=== PATIENT | female | born 1950 | race Caucasian/White ===

== ENCOUNTER → 2018-06-12 | Outpatient (CLI) | payer MEDICARE, BC ==
[2018-06-12 13:47] LABS: ABSOLUTE EOSINOPHILS # (AUTO) 0.2 10^3/uL (0.0-0.6); ABSOLUTE LYMPHOCYTES (AUTO) 1.6 10^3/uL (0.5-4.7); ABSOLUTE MONOCYTES (AUTO) 0.4 10^3/uL (0.1-1.4); ABSOLUTE NEUT (AUTO) 3.6 10^3/uL (1.7-8.2); BASOPHILS % (AUTO) 0.6 % (0-2); EOSINOPHILS % (AUTO) 3.2 % (0-6); HEMATOCRIT 31.2 % (36.0-47.0); HEMOGLOBIN 10.7 g/dL (12.0-15.5); LYMPHOCYTES % (AUTO) 27.5 % (13-45); MEAN CORPUSCULAR HGB CONC 34.3 g/dL (32.0-36.0); MEAN CORPUSCULAR VOLUME 93 fl (80-97); MONOCYTES % (AUTO) 7.5 % (3-13); PLATELET COUNT 387 10^3/uL (150-450); RED BLOOD COUNT 3.34 10^6/uL (3.72-5.28); RED CELL DISTRIBUTION WIDTH 12.6 % (11.5-14.0); SEGMENTED NEUTROPHILS % (AUTO) 61.2 % (42-78); TOTAL CELLS COUNTED % (AUTO) 100 %; WHITE BLOOD COUNT 5.8 10^3/uL (4.0-10.5)
--- NOTE | 2018-06-12 14:05 | RADIOLOGY REPORT (SQ) ---
EXAM DESCRIPTION: CHEST PA/LATERAL COMPLETED DATE/TIME: 06/12/2018 1:39 pm REASON FOR STUDY: COUGH COMPARISON: 02/05/2013 EXAM PARAMETERS: NUMBER OF VIEWS: two views TECHNIQUE: Digital Frontal and Lateral radiographic views of the chest acquired. RADIATION DOSE: NA LIMITATIONS: none FINDINGS: LUNGS AND PLEURA: Patchy consolidation is present in the medial aspect of the right upper lobe and right middle lobe, worrisome for pneumonia. There is patchy airspace disease just above the left hemidiaphragm, atelectasis versus pneumonia. Remainder of the lungs are hyperinflated and hyperlucent from obstructive disease. No pleural effusi on. No pneumothorax. MEDIASTINUM AND HILAR STRUCTURES: No masses or contour abnormalities. HEART AND VASCULAR STRUCTURES: Heart normal size. No evidence for failure. BONES: No acute findings. HARDWARE: Clips left axilla and chest wall post mastectomy OTHER: No other significant finding. IMPRESSION: Multifocal airspace disease worrisome for pneumonia TECHNICAL DOCUMENTATION: JOB ID: [id number] [employer]- All Rights Reserved Reading location - IP/workstation name: [facility]
[2018-06-12 14:14] LABS: ALANINE AMINOTRANSFERASE 40 U/L (9-52); ALBUMIN 3.7 g/dL (3.5-5.0); ALKALINE PHOSPHATASE 80 U/L (38-126); ANION GAP 11 (5-19); ASPARTATE AMINO TRANSFERASE 40 U/L (14-36); BILIRUBIN,DIRECT 0.1 mg/dL (0.0-0.4); BILIRUBIN,TOTAL 0.2 mg/dL (0.2-1.3); BLOOD UREA NITROGEN 9 mg/dL (7-20); C-REACTIVE PROTEIN 15.9 mg/L (<10.0); CALCIUM 9.6 mg/dL (8.4-10.2); CARBON DIOXIDE 31 mmol/L (22-30); CHLORIDE 100 mmol/L (98-107); GLUCOSE 94 mg/dL (75-110); POTASSIUM 4.4 mmol/L (3.6-5.0); TOTAL PROTEIN 7.1 g/dL (6.3-8.2)
[2018-06-12 14:27] LABS: ERYTHROCYTE SEDIMENTATION RATE 110 mm/hr (0-30)
== END ==
LOC: OD 13:07
PROVIDERS: ATTEND Physician Assistant Medical
DX: R05 Cough (principal); R60.9 Edema, unspecified
CPT/HCPCS: 36415; 71046; 80053; 83880; 85025; 85652; 86140

== ENCOUNTER → 2018-06-15 | Outpatient (CLI) | payer MEDICARE, BC ==
--- NOTE | 2018-06-15 13:41 | XCELERA REPORT ---
[address] [address] Transthoracic Echocardiogram Report Name: JUSTINA CASTELLANO Age: 67 yrs Gender: Female : 1950 Patient Status: Outpatient Patient Location: [facility] Study Date: 06/15/2018 01:09 PM Procedure: A two-dimensional transthoracic echocardiogram with color flow and Doppler was performed. The study was technically difficult with many images being suboptimal in quality. Reason For Study: CHF History: CHF. Ordering Physician: DANIEL PANDA PA-C Performed By: Michelle Minor Interpretation Summary The left ventricle is normal in size. There is normal left ventricular wall thickness. LV EF is Greater than 65% Left ventricular systolic function is normal. Doppler measurements suggest impaired left ventricular relaxation, which is associated with grade I/IV or mild diastolic dysfunction The left ventricular wall motion is normal. There is no thrombus. The right ventricle is grossly normal size. The right atrium is normal. The left atrial size is normal. There is no evidence of mitral valve prolapse. There is no vegetation seen on the mitral valve. There is no mitral valve stenosis. There is a trace amount of mitral regurgitation There is no aortic valvular vegetation. There is no aortic valve stenosis There is no LVOT obstruction. No aortic regurgitation is present. There is no tricuspid stenosis. There is a trace to mild amount of tricuspid regurgitation There is mild pulmonary hypertension by echo RVSP is 36 to 41 mm of Hg ,with RA mean of 5 to 10. There is no pulmonic valvular stenosis. There is no pulmonic valvular regurgitation. The aortic root is normal size. The inferior vena cava appeared normal and decreased > 50% with respiration (RAP 5-10 mmHg) There is no pericardial effusion. MMode/2D Measurements & Calculations IVSd: 0.86 cm LVIDd: 3.4 cm FS: 32.5 % Ao root diam: 2.5 cm LVIDs: 2.3 cm EDV(Teich): 47.1 ml Ao root area: 4.9 cm2 LVPWd: 0.81 cm ESV(Teich): 17.9 ml EF(Teich): 62.0 % Doppler Measurements & Calculations MV E max adan: MV dec slope: Ao V2 max: LV V1 max P.9 cm/sec 128.2 cm/sec 3.7 mmHg MV A max adan: 344.0 cm/sec2 Ao max PG: LV V1 max: 106.2 cm/sec MV dec time: 0.18 sec 6.6 mmHg 96.5 cm/sec MV E/A: 0.58 PA V2 max: TR max adan: 100.0 cm/sec 274.4 cm/sec PA max P.0 mmHg TR max P.1 mmHg Left Ventricle The left ventricle is normal in size. There is normal left ventricular wall thickness. LV EF is Greater than 65%. Left ventricular systolic function is normal. Doppler measurements suggest impaired left ventricular relaxation, which is associated with grade I/IV or mild diastolic dysfunction. The left ventricular wall motion is normal. There is no thrombus. Right Ventricle The right ventricle is grossly normal size. The right ventricle is not well visualized secondary to technical limitations. Atria The right atrium is normal. The left atrial size is normal. Mitral Valve There is no evidence of mitral valve prolapse. There is no vegetation seen on the mitral valve. There is no mitral valve stenosis. There is a trace amount of mitral regurgitation. Aortic Valve There is no aortic valvular vegetation. There is no aortic valve stenosis. There is no LVOT obstruction. No aortic regurgitation is present. Tricuspid Valve There is no tricuspid stenosis. There is a trace to mild amount of tricuspid regurgitation. There is mild pulmonary hypertension by echo. RVSP is 36 to 41 mm of Hg ,with RA mean of 5 to 10. Pulmonic Valve There is no pulmonic valvular stenosis. There is no pulmonic valvular regurgitation. Great Vessels The aortic root is normal size. The inferior vena cava appeared normal and decreased > 50% with respiration (RAP 5-10 mmHg). Effusions There is no pericardial effusion. : DANIEL PANDA PA-C > Rhea Jackson
== END ==
LOC: SP 11:51
PROVIDERS: ATTEND Physician Assistant Medical
DX: I50.9 Heart failure, unspecified (principal)
CPT/HCPCS: 93306

== ENCOUNTER 2019-12-10 15:09 | Observation (INO) | payer MEDICARE, BC ==
[~2019-12-10 15:09] MED LIST: GLYCOPYRROLATE 1 MG/5 ML VIAL ONE; NEOSTIGMINE METHYLSULFATE 10 MG/10 ML VIAL ONE; PHENYLEPHRINE HCL INJ/PF 10 MG/1 ML SDV ONE; ROCURONIUM BROMIDE INJ 50 MG/5 ML VIAL IV ONE; SUCCINYLCHOLINE CHLORIDE INJ 200 MG/10 ML VIAL ONE
--- NOTE | 2019-12-10 16:46 | ER Document Report ---
ED Medical Screen (RME) - General Chief Complaint: Abdominal Pain Stated Complaint: ABDOMINAL PAIN Time Seen by Provider: 12/10/19 16:45 Primary Care Provider: DANIEL PANDA PA-C [Primary Care Provider] - Follow up as needed Mode of Arrival: Ambulatory Information source: Patient Notes: Ms. Byrd is a 69-year-old female presents to the emergency room with interm ittent right upper abdominal discomfort which is been ongoing for a little over a month. Seems to be related to food she states that she has the same symptoms her daughter had when her gallbladder needed to come out. I greeted and performed a rapid initial assessment of this patient. Comprehensive ED assessment and evaluation of the patient, analysis of test results and completion of the medical decision making process will be conducted by additional ED providers. TRAVEL OUTSIDE OF THE [place] IN LAST 30 DAYS: No - Related Data Allergies/Adverse Reactions: No Known Drug Allergies Allergy (Severe, Verified 08/29/11 12:22) BANDAIDS Adverse Reaction (Uncoded 08/23/11 10:38) RASH Past Medical History - Past Medical History Cardiac Medical History: Denies: Hx Heart Attack, Hx Hypertension - BORDERLINE Pulmonary Medical History: Denies: Hx Asthma Neurological Medical History: Denies: Hx Cerebrovascular Accident, Hx Seizures GI Medical History: Denies: Hx Hepatitis, Hx Hiatal Hernia, Hx Ulcer Infectious Medical History: Denies: Hx Hepatitis Past Surgical History: Reports: Hx Mastectomy - LEFT ARM RESTRICTIONS. Denies: Hx Hysterectomy, Hx Open Heart Surgery, Hx Pacemaker Physical Exam - Vital signs Vitals: Temp Pulse Resp BP Pulse Ox 98.1 F 79 16 156/58 H 97 12/10/19 15:15 12/10/19 15:15 12/10/19 15:15 12/10/19 15:15 12/10/19 15:15 Course - Vital Signs Vital signs: Temp Pulse Resp BP Pulse Ox 98.1 F 79 16 156/58 H 97 12/10/19 15:15 12/10/19 15:15 12/10/19 15:15 12/10/19 15:15 12/10/19 15:15 Doctor's Discharge - Discharge Referrals: DANIEL PANDA PA-C [Primary Care Provider] - Follow up as needed
[2019-12-10 17:13] LABS: APPEARANCE,URINE CLEAR; BILIRUBIN,URINE NEGATIVE (NEGATIVE); COLOR,URINE YELLOW; GLUCOSE, URINE NEGATIVE (NEGATIVE); KETONES,URINE NEGATIVE (NEGATIVE); LEUKOCYTE ESTERASE,URINE NEGATIVE (NEGATIVE); NITRITE,URINE NEGATIVE (NEGATIVE); PROTEIN,URINE NEGATIVE (NEGATIVE); URINE SPECIFIC GRAVITY 1.005; UROBILINOGEN,URINE NEGATIVE mg/dL (<2.0)
--- NOTE | 2019-12-10 17:32 | ER Document Report ---
ED General - General Chief Complaint: Abdominal Pain Stated Complaint: ABDOMINAL PAIN Time Seen by Provider: 12/10/19 16:45 Primary Care Provider: DANIEL PANDA PA-C [PHYSICIAN TUMBLERS SUPERVISOR] - Follow up as needed Mode of Arrival: Ambulatory TRAVEL OUTSIDE OF THE [place] IN LAST 30 DAYS: No - HPI Notes: Chief complaint: Right upper quadrant pain HPI: 69-year-old female presenting with 1 month history intermittent right upper quadrant abdominal pain. Episodes are gradually getting worse and coming a little more frequently. Occasionally more of a problem after eating although this is not been a consistent pattern. Mild associated nausea without vomiting. Mild anorexia. No weight loss. No fever, chills, or dysuria. Patient reports past history of GERD. She denies any known history of gallbladder or biliary tract disease, liver disease or peptic ulcer disease. Bowel movements are normal. No melena or hematochezia. No hematemesis. She has never had any tiffanie luation of her gallbladder and has not talked with her primary care physician about the symptoms. Patient has had a past history of breast CA. She is on tamoxifen for this. She has been disease-free for 10 years. Previous left mastectomy. Patient has had a in the past. No other abdominal surgery. Patient has a history of hypertension. Former cigarette smoker. She quit approximately 2 years ago. Consumes about 2 cans of beer per day. Denies any drug use. 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 Patient has recently been seeing her senior maintenance machinist because of "some kind of a problem with the uterus" and has been told that she needs an endometrial biopsy because of postmenopausal spotting. - Related Data Allergies/Adverse Reactions: No Known Drug Allergies Allergy (Severe, Verified 08/29/11 12:22) BANDAIDS Adverse Reaction (Uncoded 08/23/11 10:38) RASH Past Medical History - General Information source: Patient, [facility] Records - Social History Smoking Status: Former Smoker Frequency of alcohol use: 2 beers daily. Drug Abuse: None Family History: Hypertension, Malignancy Patient has homicidal ideation: No - Past Medical History Cardiac Medical History: Reports: Hx Hypertension - BORDERLINE Denies: Hx Heart Attack Pulmonary Medical History: Reports: None Denies: Hx Asthma EENT Medical History: Reports: None Neurological Medical History: Reports: Other - Peripheral neuropathy. Denies: Hx Cerebrovascular Accident, Hx Seizures Endocrine Medical History: Reports: None Renal/ Medical History: Reports: None Malignancy Medical History: Reports: Hx Breast Cancer GI Medical History: Reports: Hx Gastroesophageal Reflux Disease. Denies: Hx Hepatitis, Hx Hiatal Hernia, Hx Ulcer Musculoskeletal Medical History: Reports None Skin Medical History: Reports None Psychiatric Medical History: Reports: None Infectious Medical History: Denies: Hx Hepatitis Past Surgical History: Reports: Hx Section, Hx Mastectomy - LEFT ARM RESTRICTIONS. Denies: Hx Appendectomy, Hx Cholecystectomy, Hx Hysterectomy, Hx Open Heart Surgery, Hx Pacemaker Review of Systems - Review of Systems Notes: Constitutional: Negative for fever. HENT: Negative for sore throat. Eyes: Negative for visual changes. Cardiovascular: Negative for chest pain. Respiratory: Negative for shortness of breath. Gastrointestinal: As per HPI. Genitourinary: Negative for dysuria. Musculoskeletal: Negative for back pain. Skin: Negative for rash. Neurological: Negative for headaches, weakness or numbness. 10 point ROS negative except as marked above and in HPI. Physical Exam - Vital signs Vitals: Temp Pulse Resp BP Pulse Ox 98.1 F 79 16 156/58 H 97 12/10/19 15:15 12/10/19 15:15 12/10/19 15:15 12/10/19 15:15 12/10/19 15:15 - Notes Notes: GENERAL: Well-developed well-nourished female approximately stated age appearing in no acute distress. SKIN: Good turgor no rashes. HEAD: Normocephalic atraumatic. EYES: PERRLA. EOMI. Conjunctivae and sclerae clear. EARS: CANALS AND TMS CLEAR. NOSE: CLEAR. MOUTH: Moist mucosa. Edentulous. No stridor or edema. No drooling. NECK: Supple. No masses or thyromegaly. No adenopathy. Carotids 2+ without bruits. No JVD. BACK: Symmetrical without tenderness. CHEST: Respirations unlabored. Breath sounds clear and symmetrical. Breasts: Status post left mastectomy. HEART: Regular rhythm. No murmur gallop or rub. ABDOMEN: Minimal tenderness on deep palpation right upper quadrant. Soft withou t masses, organomegaly or rebound. Bowel sounds normally active. No bruits. GENITALIA: Deferred. EXTREMITIES: Mild degenerative changes in the phalangeal joints both hands. No edema. No calf tenderness. Cap refill less than 1.5 seconds. Dorsalis pedis and posterior tibial pulses 3+ and symmetrical. NEUROLOGICAL: GCS 15. Alert and oriented x3. Normal gait. Fluent speech. Cranial nerves II through XII intact. Sensorimotor and cerebellar normal. Normal tone. PSYCHIATRIC: Appropriate affect. Course - Re-evaluation Re-evalutation: 12/10/19 17:34 Differential diagnosis includes cholelithiasis, chronic cholecystitis, diverticulitis, hepatitis, gastritis, peptic ulcer disease and nephrolithiasis. Lab studies requested include CBC, comprehensive metabolic profile, serum lipase, urinalysis. Pending imaging: CT abdomen/pelvis with contrast. 12/10/19 20:53 White count and bilirubin normal lipase and alkaline phosphatase are normal. Transaminases are about twice normal. Imaging consistent with chronic cholecys titis with sludge present. Dr. Adams from general surgery has been consulted and will see the patient in ER at this time. Findings are discussed with the patient. 12/10/19 21:36 Dr. Adams will admit the patient to his service. - Vital Signs Vital signs: Temp Pulse Resp BP Pulse Ox 98.1 F 79 16 156/58 H 97 12/10/19 16:41 12/10/19 15:15 12/10/19 15:15 12/10/19 15:15 12/10/19 15:15 - Laboratory Result Diagrams: 12/10/19 17:26 12/10/19 17:26 Laboratory results interpreted by me: 12/10/19 12/10/19 12/10/19 17:00 17:26 17:26 Hgb 11.7 L Hct 34.0 L Sodium 135.6 L Potassium 3.4 L Creatinine 0.43 L Direct Bilirubin 0.5 H AST 76 H ALT 57 H Urine Ascorbic Acid 40 H - Diagnostic Test Radiology reviewed: Reports reviewed - CT showed gallbladder wall thickening. Subsequent ultrasound showed wall thickening and presence of sludge. No ductal dilatation or pericholecystic fluid present. Discharge - Discharge Clinical Impression: Chronic cholecystitis Condition: Stable Disposition: ADMITTED INPATIENT Admitting Provider: Surgicalist Unit Admitted: Surgical Floor Referrals: DANIEL PANDA PA-C [PHYSICIAN TUMBLERS SUPERVISOR] - Follow up as needed
[2019-12-10 17:42] LABS: ABSOLUTE LYMPHOCYTES (AUTO) 1.2 10^3/uL (0.5-4.7); ABSOLUTE MONOCYTES (AUTO) 0.4 10^3/uL (0.1-1.4); ABSOLUTE NEUT (AUTO) 5.1 10^3/uL (1.7-8.2); BASOPHILS % (AUTO) 0.3 % (0-2); EOSINOPHILS % (AUTO) 0.4 % (0-6); HEMOGLOBIN 11.7 g/dL (12.0-15.5); LYMPHOCYTES % (AUTO) 17.3 % (13-45); MEAN CORPUSCULAR HEMOGLOBIN 31.4 pg (27.0-33.4); MEAN CORPUSCULAR HGB CONC 34.6 g/dL (32.0-36.0); MEAN CORPUSCULAR VOLUME 91 fl (80-97); MONOCYTES % (AUTO) 5.8 % (3-13); PLATELET COUNT 162 10^3/uL (150-450); RED BLOOD COUNT 3.74 10^6/uL (3.72-5.28); RED CELL DISTRIBUTION WIDTH 12.8 % (11.5-14.0); SEGMENTED NEUTROPHILS % (AUTO) 76.2 % (42-78); TOTAL CELLS COUNTED % (AUTO) 100 %; WHITE BLOOD COUNT 6.8 10^3/uL (4.0-10.5)
[2019-12-10 18:02] LABS: ALBUMIN 4.3 g/dL (3.5-5.0); ALKALINE PHOSPHATASE 68 U/L (38-126); ANION GAP 7 (5-19); ASPARTATE AMINO TRANSFERASE 76 U/L (14-36); BILIRUBIN,DIRECT 0.5 mg/dL (0.0-0.4); BILIRUBIN,TOTAL 1.2 mg/dL (0.2-1.3); BLOOD UREA NITROGEN 10 mg/dL (7-20); CALCIUM 9.8 mg/dL (8.4-10.2); CARBON DIOXIDE 29 mmol/L (22-30); CHLORIDE 100 mmol/L (98-107); GLUCOSE 104 mg/dL (75-110); POTASSIUM 3.4 mmol/L (3.6-5.0); TOTAL PROTEIN 7.6 g/dL (6.3-8.2)
--- NOTE | 2019-12-10 18:36 | RADIOLOGY REPORT (SQ) ---
EXAM DESCRIPTION: CT ABD/PELVIS WITH IV ONLY IMAGES COMPLETED DATE/TIME: 12/10/2019 6:23 pm REASON FOR STUDY: pain COMPARISON: None. TECHNIQUE: CT scan of the abdomen and pelvis performed using helical scanning technique with dynamic intravenous contrast injection. No oral contrast. Images reviewed with lung, soft tissue, and bone windows. Reconstructed coronal and sagittal MPR images reviewed. Delayed images for evaluation of the urinary system also acquired. All images stored on PACS. All CT scanners at this facility use dose modulation, iterative reconstruction, and/or weight based d osing when appropriate to reduce radiation dose to as low as reasonably achievable (ALARA). [facility]: Dose Right [facility]: CareDose [facility]: Dose Right [facility]: Teradose 4D [facility]: Amanda Huff DBA SecuRecovery CONTRAST TYPE AND DOSE: 77 cc Omnipaque 350- low osmolar. RENAL FUNCTION: BUN 10 creatinine 0.43 RADIATION DOSE: CT Rad equipment meets quality standard of care and radiation dose reduction techniq ues were employed. CTDIvol: 7.8 - 10.8 mGy. DLP: 890 mGy-cm.. LIMITATIONS: None. FINDINGS: LOWER CHEST: No significant findings. No nodules or infiltrates. LIVER: Normal size. No masses. No dilated ducts. SPLEEN: Normal size. No focal lesions. PANCREAS: No masses. No significant calcifications. No adjacent inflammation or peripancreatic fluid collections. Pancreatic duct not dilated. GALLBLADDER: The gallbladder is mildly distended and there mild thickening of the gallbladder wall. No gallstones are appreciated. ADRENAL GLANDS: No significant masses or asymmetry. RIGHT KIDNEY AND URETER: No solid masses. No significant calcifications. No hydronephrosis or hyd roureter. LEFT KIDNEY AND URETER: No solid masses. No significant calcifications. No hydronephrosis or hydr oureter. AORTA AND VESSELS: No aneurysm. No dissection. Renal arteries, SMA, celiac without stenosis. RETROPERITONEUM: No retroperitoneal adenopathy, hemorrhage or masses. BOWEL AND PERITONEAL CAVITY: No masses or inflammation. There are sigmoid diverticula. APPENDIX: Normal. PELVIS: No mass. No free fluid. Normal bladder. ABDOMINAL WALL: There is a very small ventral hernia just anterior to the bladder ends fat. BONES: No significant or acute findings. OTHER: No other significant finding. IMPRESSION: 1. Mildly distended gallbladder with thickening of the gallbladder wall. Correlate for acalculous cholecystitis. 2. Diverticulosis coli. 3. Very small ventral hernia in the pelvis. Contains fat. TECHNICAL DOCUMENTATION: JOB ID: [id number] Quality ID # [id number]: Final reports with documentation of one or more dose reduction techniques (e.g., Au tomated exposure control, adjustment of the mA and/or kV according to patient size, use of iterative reconstruction technique) 2010 [employer]- All Rights Reserved Reading location - IP/workstation name: [email or web address]
--- NOTE | 2019-12-10 20:32 | RADIOLOGY REPORT (SQ) ---
EXAM DESCRIPTION: Right upper quadrant abdominal ultrasound CLINICAL HISTORY: 69 years Female; ruq pain TECHNIQUE: Abdominal ultrasound was performed. COMPARISON: CT scan of the abdomen and pelvis obtained earlier in the evening FINDINGS: Pancreas: The head and body the pancreas are unremarkable. The tail was not well seen. Liver: The liver measures 14.2 cm in length. Echogenicity is within normal limits. Portal vein is patent with hepatopedal flow.. Gallbladder: The wall measures 4.6 mm. Sonographic Hughes's is negative. There is hyperdense material layering in the gallbladder posteriorly which may represent sludge. No para cholecystic fluid. Common bile duct: 2.0 mm. Right kidney: The kidney measures 10.5 x 4.3 x 5.4 cm. Echogenicity and blood flow are normal.. No hydronephrosis. Aorta:Visualized portions are within normal limits. IVC: Visualized portions are within normal limits. Ascites: No free fluid. IMPRESSION: Possible sludge in the gallbladder with thickened gallbladder wall. No sonographic Hughes's. No biliary dilatation.
--- NOTE | 2019-12-10 22:10 | PDOC H&P ---
History of Present Illness Admission Date/PCP: 12/10/19 21:42 Patient complains of: Abdominal pains History of Present Illness: JUSTINA CASTELLANO is a 69 year old female with history of hypertension and breast cancer postmastectomy, has been complaining of off and on epigastric pains for the past month. Last night she ate cake with icing and noted epigastric pains in the morning with nausea. In the ED she is noted to have thickened gallbladder wall on CT scan and ultrasound also showed about 4.6 cm thickening of the gallbladder wall with sludge formation. She denies any fever no chills. Past Medical History Cardiac Medical History: Reports: Hypertension - BORDERLINE Denies: Myocardial Infarction Pulmonary Medical History: Reports: None Denies: Asthma EENT Medical History: Reports: None Neurological Medical History: Reports: Other - Peripheral neuropathy Denies: Seizures Endocrine Medical History: Reports: None Renal/ Medical History: Reports: None Malignancy Medical History: Reports: Breast Cancer GI Medical History: Reports: Gastroesophageal Reflux Disease Denies: Hepatitis, Hiatal Hernia Musculoskeltal Medical History: Reports: None Skin Medical History: Reports: None Psychiatric Medical History: Reports: None Hematology: Denies: Anemia, Sickle Cell Disease Past Surgical History Past Surgical History: Reports: Section, Mastectomy - LEFT ARM RESTRICTIONS Denies: Amputation, Appendectomy, Cholecystectomy, Hysterectomy, Pacemaker Social History Smoking Status: Former Smoker Frequency of Alcohol Use: Social Family History Family History: Hypertension, Malignancy Parental Family History Reviewed: Yes - Daughter had cholecystectomy for g allstones Children Family History Reviewed: No Sibling(s) Family History Reviewed.: No Medication/Allergy Home Medications: Alendronate Sodium [Fosamax] 70 mg PO TID 08/23/11 Anastrozole [Arimidex 1 Mg Tablet] 1 mg PO DAILY 08/23/11 Ascorbic Acid [Vitamin C 500 Mg Tablet] 1,000 mg PO DAILY 08/23/11 Aspirin [Ecotrin 81 mg EC Tablet] 81 mg PO DAILY 08/23/11 Calcium Plus D 1,200 mg DAILY 08/23/11 Gelatin 650 mg PO DAILY 08/23/11 Woman's Daily Multi Vit DAILY 08/23/11 Allergies/Adverse Reactions: No Known Drug Allergies Allergy (Severe, Verified 08/29/11 12:22) BANDAIDS Adverse Reaction (Uncoded 08/23/11 10:38) RASH Review of Systems Constitutional: PRESENT: other - Denies fever no chills Cardiovascular: PRESENT: other - No chest pains or cough Gastrointestinal: PRESENT: abdominal pain, nausea Physical Exam Vital Signs: Temp Pulse Resp BP Pulse Ox 98.1 F 79 16 156/58 H 97 12/10/19 16:41 12/10/19 15:15 12/10/19 15:15 12/10/19 15:15 12/10/19 15:15 Intake & Output 12/09/19 12/10/19 12/11/19 06:59 06:59 06:59 Weight 66.8 kg General appearance: PRESENT: mild distress Head exam: PRESENT: atraumatic Eye exam: PRESENT: conjunctiva pink Mouth exam: PRESENT: moist Neck exam: PRESENT: full ROM Respiratory exam: PRESENT: clear to auscultation ivan Cardiovascular exam: PRESENT: RRR Pulses: PRESENT: normal radial pulses Vascular exam: PRESENT: normal capillary refill GI/Abdominal exam: PRESENT: soft, tenderness - Along epigastric area and minimal tenderness along the right upper quadrant Rectal exam: PRESENT: deferred Extremities exam: PRESENT: full ROM Musculoskeletal exam: PRESENT: ambulatory Neurological exam: PRESENT: alert, oriented to person, oriented to place, oriented to time, oriented to situation Psychiatric exam: PRESENT: appropriate affect Skin exam: PRESENT: normal color, warm Results Laboratory Results: 12/10/19 17:26 12/10/19 17:26 12/10/19 12/10/19 12/10/19 17:00 17:26 17:26 WBC 6.8 RBC 3.74 Hgb 11.7 L Hct 34.0 L MCV 91 MCH 31.4 MCHC 34.6 RDW 12.8 Plt Count 162 Seg Neutrophils % 76.2 Sodium 135.6 L Potassium 3.4 L Chloride 100 Carbon Dioxide 29 Anion Gap 7 BUN 10 Creatinine 0.43 L Est GFR ( Amer) > 60 Glucose 104 Calcium 9.8 Total Bilirubin 1.2 AST 76 H Alkaline Phosphatase 68 Total Protein 7.6 Albumin 4.3 Lipase Urine Color YELLOW Urine Appearance CLEAR Urine pH 7.0 Ur Specific [place] 1.005 Urine Protein NEGATIVE Urine Glucose (UA) NEGATIVE Urine Ketones NEGATIVE Urine Blood NEGATIVE Urine Nitrite NEGATIVE Ur Leukocyte Esterase NEGATIVE Urine RBC (Auto) 0 12/10/19 17:26 WBC RBC Hgb Hct MCV MCH MCHC RDW Plt Count Seg Neutrophils % Sodium Potassium Chloride Carbon Dioxide Anion Gap BUN Creatinine Est GFR ( Amer) Glucose Calcium Total Bilirubin AST Alkaline Phosphatase Total Protein Albumin Lipase 185.9 Urine Color Urine Appearance Urine pH Ur Specific [place] Urine Protein Urine Glucose (UA) Urine Ketones Urine Blood Urine Nitrite Ur Leukocyte Esterase Urine RBC (Auto) Impressions: Abdomen/Pelvis CT 12/10/19 16:47 IMPRESSION: 1. Mildly distended gallbladder with thickening of the gallbladder wall. Correlate for acalculous cholecystitis. 2. Diverticulosis coli. 3. Very small ventral hernia in the pelvis. Contains fat. Abdomen Ultrasound 12/10/19 19:42 IMPRESSION: Possible sludge in the gallbladder with thickened gallbladder wall. No sonographic Hughes's. No biliary dilatation. Assessment & Plan - Diagnosis (1) Biliary sludge Is this a current diagnosis for this admission?: Yes (3) Hypertension Is this a current diagnosis for this admission?: Yes - Time Time Spent: 30 to 50 Minutes - Inpatient Certification Medical Necessity: Need For IV Fluids, Need for IV Antibiotics, Need for Surgery - Plan Summary Plan Summary: 69-year-old female hypertensive and breast cancer noted to have off and on epigastric pains in the past. Sometimes the pain will be worse in the middle of the night after dinner. She did have cake with icing last night and this morning complained of severe epigastric pains she went to the ED and CT scan showed thickened gallbladder wall and on ultrasound showed gallbladder wall abo ut 4.6 mm with sludge. Is tender in the epigastric area and mild in the right upper quadrant she denies fever no chills. Her white count is normal. Her LFTs are just slightly elevated. Impression is acute cholecystitis with biliary sludge Plans: Is start hydration and IV antibiotics. For laparoscopic cholecystectomy in a.m. by Dr. Wolff
[2019-12-11] MEDS ORDERED: DEXTROSE 50%-WATER 25 GM/50 ML DISP.SYRIN IV PRN ×2 (00:04)
[2019-12-11] MEDS ORDERED: GLUCAGON,HUMAN RECOMB 1 MG INJ SUBCUT PRN (00:04)
[2019-12-11] MEDS ORDERED: DEXTROSE 40% GEL 15 GM TUBE PO PRN ×2 (00:04)
[2019-12-11] MEDS ORDERED: KETOROLAC TROMETHAMINE INJ/PF 30 MG/1 ML SDV IV PRN (00:34)
[2019-12-11] MEDS ORDERED: CEFAZOLIN 1 GM/D5W RTU 1 GM/50 ML RTUPB IV ONE (00:45)
[2019-12-11] MEDS: DEXTROSE 5%-LACTATED RINGERS 1,000 ML IV PRN ×3 (00:54→13:47)
[2019-12-11 06:16] LABS: ABSOLUTE EOSINOPHILS # (AUTO) 0.1 10^3/uL (0.0-0.6); ABSOLUTE LYMPHOCYTES (AUTO) 1.5 10^3/uL (0.5-4.7); ABSOLUTE MONOCYTES (AUTO) 0.4 10^3/uL (0.1-1.4); ABSOLUTE NEUT (AUTO) 2.7 10^3/uL (1.7-8.2); BASOPHILS % (AUTO) 0.4 % (0-2); EOSINOPHILS % (AUTO) 2.6 % (0-6); HEMATOCRIT 34.1 % (36.0-47.0); HEMOGLOBIN 11.6 g/dL (12.0-15.5); LYMPHOCYTES % (AUTO) 32.5 % (13-45); MEAN CORPUSCULAR HEMOGLOBIN 30.8 pg (27.0-33.4); MEAN CORPUSCULAR HGB CONC 34.1 g/dL (32.0-36.0); MEAN CORPUSCULAR VOLUME 90 fl (80-97); MONOCYTES % (AUTO) 8.1 % (3-13); PLATELET COUNT 143 10^3/uL (150-450); RED BLOOD COUNT 3.78 10^6/uL (3.72-5.28); RED CELL DISTRIBUTION WIDTH 12.9 % (11.5-14.0); SEGMENTED NEUTROPHILS % (AUTO) 56.4 % (42-78); TOTAL CELLS COUNTED % (AUTO) 100 %; WHITE BLOOD COUNT 4.7 10^3/uL (4.0-10.5)
[2019-12-11 06:23] LABS: ALBUMIN 3.9 g/dL (3.5-5.0); ALKALINE PHOSPHATASE 47 U/L (38-126); ANION GAP 5 (5-19); ASPARTATE AMINO TRANSFERASE 41 U/L (14-36); BILIRUBIN,TOTAL 0.5 mg/dL (0.2-1.3); BLOOD UREA NITROGEN 8 mg/dL (7-20); CALCIUM 9.3 mg/dL (8.4-10.2); CARBON DIOXIDE 29 mmol/L (22-30); CHLORIDE 104 mmol/L (98-107); GLUCOSE 128 mg/dL (75-110); POTASSIUM 3.5 mmol/L (3.6-5.0)
[2019-12-11] MEDS ORDERED: DEXAMETHASONE SOD PHOSPHATE INJ 4 MG/1 ML VIAL ONE (08:02)
[2019-12-11] MEDS ORDERED: MIDAZOLAM 2 MG/2 ML INJ ONE (08:02)
[2019-12-11] MEDS ORDERED: ONDANSETRON HCL INJ/PF 4 MG/2 ML SDV ONE (08:02)
[2019-12-11] MEDS ORDERED: FENTANYL CITRATE INJ/PF 100 MCG/2 ML AMPUL ONE (08:02)
[2019-12-11] MEDS ORDERED: MORPHINE SULFATE 10 MG/ML INJ ONE (08:02)
[2019-12-11] MEDS ORDERED: PROPOFOL INJ 200 MG/20 ML VIAL IV ONE (08:02)
[2019-12-11] MEDS ORDERED: CEFAZOLIN INJ 1 GM VIAL ONE (08:16)
[2019-12-11] MEDS ORDERED: BUPIVACAINE HCL 0.25 % INJ/PF (2.5 MG/1 ML) 30 ML VIAL ONE (08:27)
[2019-12-11] MEDS ORDERED: MORPHINE SULFATE 10 MG/ML INJ IV PRN (09:16)
[2019-12-11] MEDS ORDERED: FENTANYL CITRATE INJ/PF 100 MCG/2 ML AMPUL IV PRN ×3 (09:16)
[2019-12-11] MEDS ORDERED: PROMETHAZINE HCL INJ 25 MG/1 ML VIAL IV PRN ×2 (09:16)
[2019-12-11] MEDS ORDERED: DIPHENHYDRAMINE HCL 50 MG/ML VIAL IV PRN (09:16)
[2019-12-11] MEDS ORDERED: MEPERIDINE HCL/PF INJ 25 MG/1 ML DISP.SYRIN IV PRN (09:16)
--- NOTE | 2019-12-11 09:52 | Operative Report ---
Operative Report DATE OF SURGERY: 12/11/19 PREOPERATIVE DIAGNOSIS: Acute cholecystitis with cholelithiasis POSTOPERATIVE DIAGNOSIS: Same with intra-abdominal adhesions OPERATION: 1. Laparoscopic cholecystectomy. 2. Intra-abdominal lysis of adhesions. 3. Drainage of subhepatic fossa SURGEON: JJ NICHOLS ANESTHESIA: GA TISSUE REMOVED OR ALTERED: 1 gallbladder with contents COMPLICATIONS: None ESTIMATED BLOOD LOSS: 50 cc INTRAOPERATIVE FINDINGS: See below PROCEDURE: After obtaining informed consent, the patient was taken to the operating room. General Anesthesia was induced; the arms were extended, and the abdomen was exposed, and prepped and draped in a sterile fashion. Instrumentation was set up for laparoscopic cholecystectomy. Surgical plan and surgical timeout were conducted. A vertical incision was made above the umbilicus, and a verres needle was inserted uneventfully into the peritoneal cavity. Pneumoperitoneum was established. The verres needle was removed and a 5 mm trocar was inserted and a 5 mm flexible laparoscope was inserted. Visualization of the peritoneal cavity confirmed safe uneventful entry. Under direct visualization 3 additional 5 mm ports were established, one in the subxiphoid position and second in the subcostal position. There were moderately thick adhesions between the gallbladder and the proximal transverse colon which were taken down using a combination of hook electrocautery dissection and blunt dissection. Some shearing of the surface of the liver occurred requiring electrocautery, and eventually application of Surgicel. Bleeding settled down. A grasper was placed on the fundus of the gallbladder and the gallbladder is elevated over the right surface of the liver; a second grasper was used to grasp the infundibulum of the gallbladder. Visualization of the hepato biliary area anatomy appeared normal. The neck of the gallbladder and junction with the cystic duct was dissected out. The Cystic artery was in its usual location; it was generous in diameter. We both right and left sides of the cystic duct. Photos of the anatomy were acquired. The cystic artery along with the node of Calot was from the gallbladder along its length. Was surrounded with a right angle clamp, clipped twice pr oximally, once distally and divided with laparoscopic scissors. We now opened the triangle of Calot widely by dividing the peritoneal reflection on both the medial and lateral sides of the cystic duct infundibular junction. The critical view was obtained. Photos were taken. We now milked the cystic duct of any possible stones, clipped the cystic duct proximally 3 times, once distally and divided the duct with scissors. Photos were taken again. The gallbladder was now removed from the undersurface of the liver using hook cautery dissection. Graspers were repositioned and the gallbladder was removed uneventfully from the abdominal cavity through the super umbilical port site incision. There is no spillage of stones the specimen was examined, then passed off to pathology for permanent analysis. We returned to the peritoneal cavity check for bleeding, and evidence of bile leak, and there was still some oozing from the inferior surface of the right lobe of the liver. This was managed with electrocautery and additional application of a Surgicel. I did place a large Peter drain through 1 of the subcostal port sites, and secured it with 2-0 Prolene suture.t We confirmed satisfactory placement of clips on cystic duct and cystic artery were secure . At this point we felt the operation was complete. The subcutaneous tissue was then anesthetized with quarter percent Marcaine Sponge and needle counts are correct. All ports removed under direct visualization pneumoperitoneum evacuated, the supraumbilical fascial defect was closed with 0 Vicryl, and 5 mm port wounds closed with 3-0 Vicryl suture, benzoin and Steri-Strips. The patient was extubated, and taken to the recovery room in stable condition.
[2019-12-11] MEDS: DOCUSATE SODIUM 100 MG CAPSULE PO SCH ×2 (11:14→17:29)
[2019-12-11] MEDS: CEFAZOLIN 1 GM/D5W RTU 1 GM/50 ML RTUPB IV SCH ×2 (11:15→17:29)
[2019-12-11] MEDS: KETOROLAC TROMETHAMINE INJ/PF 30 MG/1 ML SDV IV PRN ×2 (13:48→20:58)
[2019-12-11] MEDS ORDERED: OXYCODONE-ACETAMINOPHEN 5-325 MG TABLET PO ONE (17:30)
--- NOTE | 2019-12-11 20:53 | EKG REPORT ---
SEVERITY:- NORMAL ECG - SINUS RHYTHM : Confirmed by: Qing Gonzalez 11-Dec-2019 20:53:42
[2019-12-12] MEDS: CEFAZOLIN 1 GM/D5W RTU 1 GM/50 ML RTUPB IV SCH ×2 (01:10→09:26)
[2019-12-12] MEDS: DEXTROSE 5%-LACTATED RINGERS 1,000 ML IV PRN (01:10)
[2019-12-12] MEDS: KETOROLAC TROMETHAMINE INJ/PF 30 MG/1 ML SDV IV PRN (06:37)
--- NOTE | 2019-12-12 08:55 | PDOC PROGRESS REPORT ---
Subjective Progress Note for:: 12/12/19 Reason For Visit: CHRONIC CHOLECYSTITIS Patient doing well, tolerated diet and ambulated. Drainage output serosanguineous only Physical Exam Vital Signs: Temp Pulse Resp BP Pulse Ox 98.4 F 103 H 16 146/71 H 90 L 12/12/19 04:56 12/12/19 04:56 12/12/19 04:56 12/12/19 04:56 12/12/19 04:56 Intake & Output 12/11/19 12/12/19 12/13/19 06:59 06:59 06:59 Intake Total 935 3150 1000 Output Total 88 50 Balance 935 3062 950 Weight 66.8 kg General appearance: PRESENT: no acute distress GI/Abdominal exam: PRESENT: other - Abdomen soft, nontender; drain removed uneventfully. Results Laboratory Results: 12/11/19 05:51 12/11/19 05:51 Impressions: Abdomen/Pelvis CT 12/10/19 16:47 IMPRESSION: 1. Mildly distended gallbladder with thickening of the gallbladder wall. Correlate for acalculous cholecystitis. 2. Diverticulosis coli. 3. Very small ventral hernia in the pelvis. Contains fat. Abdomen Ultrasound 12/10/19 19:42 IMPRESSION: Possible sludge in the gallbladder with thickened gallbladder wall. No sonographic Hughes's. No biliary dilatation. Assessment & Plan - Diagnosis (1) Acute cholecystitis Is this a current diagnosis for this admission?: Yes Plan: Impression: Doing well status post laparoscopic cholecystectomy for acute cholecystitis, tolerating diet, pain management; drain out Recommendations: 1. We will discharge patient home; she may shower; resume regular activities on a progressive basis 2. Patient to take Tylenol or Motrin as needed pain 3. Patient to follow-up with [place] [facility] in 1 to 2 weeks; she will call Friday, Friday for appointment - Time Time Spent: 30 to 50 Minutes
--- NOTE | 2019-12-12 08:59 | PDOC DISCHARGE SUMMARY ---
General - Admit/Disc Date/PCP Admission Date/Primary Care Provider: 12/10/19 21:42 Discharge Date: 12/12/19 - Discharge Diagnosis Final Diagnosis: Acute cholecystitis with cholelithiasis - Assessment Summary: Patient is a 69-year-old white female presented to the emergency department complaining of acute onset abdominal pain. She was evaluated in the emergency department and was found to have distended gallbladder with thickened wall on CT scan of the abdomen and pelvis, and sludge with thickened wall and gallbladder ultrasonography. She was felt to be suffering from acute cholecystitis with cholelithiasis. She was admitted to the surgical service, kept n.p.o. on IV fluids. She was taken to the operating room by Dr. Wolff on 12/11/2019 and underwent laparoscopic cholecystectomy with drain placement. She was found to have an acutely inflamed gallbladder. He tolerated the procedure well, postoperatively she was started on diet, this was advanced, and she had adequate pain control. The following morning her drain was removed and she was felt to have received maximum benefit from hospitalization was discharged home. - Additional Information Resuscitation Status: Full Code Discharge Diet: As Tolerated Discharge Activity: Activity As Tolerated Referrals: DANIEL PANDA PA-C [PHYSICIAN [employer]ATION [employer]PERATOR] - Follow up as needed Home Medications: Ascorbic Acid [Vitamin C 500 Mg Tablet] 1,000 mg PO DAILY 08/23/11 Aspirin [Ecotrin 81 mg EC Tablet] 81 mg PO DAILY 08/23/11 Calcium Plus D 1,200 mg DAILY 08/23/11 Cyanocobalamin (Vitamin B-12) [Vitamin B-12] 1,000 mcg PO DAILY 12/11/19 Gabapentin [Neurontin 300 mg Capsule] 300 mg PO Q12 12/11/19 Hydrochlorothiazide 12.5 mg PO DAILY 12/11/19 Losartan Potassium [Cozaar 50 mg Tablet] 50 mg PO DAILY 12/11/19 Emerson-3/Dha/Epa/Fish Oil [Fish Oil 1,000 mg Softgel] 3 each PO DAILY 12/11/19 Omeprazole 20 mg PO BID 12/11/19 Tamoxifen Citrate [Nolvadex 10 Mg Tablet] 10 mg PO BID 12/11/19 Zinc [Zinc Chelated] 50 mg PO DAILY 12/11/19 Additional Information: Plan: 1. Patient was discharged home the care of her family, follow-up with [place] [facility] in 1 to 2 weeks; she will call 12/13/2019 for an appointment 2. She is to resume her preoperative medications 3. She will take Tylenol or Motrin as needed pain 4. She may shower in 24 hours History of Present Illiness History of Present Illness: JUSTINA CASTELLANO is a 69 year old female Physical Exam Vital Signs: Temp Pulse Resp BP Pulse Ox 98.4 F 103 H 16 146/71 H 90 L 12/12/19 04:56 12/12/19 04:56 12/12/19 04:56 12/12/19 04:56 12/12/19 04:56 Intake & Output 12/11/19 12/12/19 12/13/19 06:59 06:59 06:59 Intake Total 935 3150 1000 Output Total 88 50 Balance 935 3062 950 Weight 66.8 kg Results Laboratory Results: WBC 4.7 10^3/uL (4.0-10.5) 12/11/19 05:51 RBC 3.78 10^6/uL (3.72-5.28) 12/11/19 05:51 Hgb 11.6 g/dL (12.0-15.5) L 12/11/19 05:51 Hct 34.1 % (36.0-47.0) L 12/11/19 05:51 MCV 90 fl (80-97) 12/11/19 05:51 MCH 30.8 pg (27.0-33.4) 12/11/19 05:51 MCHC 34.1 g/dL (32.0-36.0) 12/11/19 05:51 RDW 12.9 % (11.5-14.0) 12/11/19 05:51 Plt Count 143 10^3/uL (150-450) L 12/11/19 05:51 Lymph % (Auto) 32.5 % (13-45) 12/11/19 05:51 [place] % (Auto) 8.1 % (3-13) 12/11/19 05:51 Eos % (Auto) 2.6 % (0-6) 12/11/19 05:51 Baso % (Auto) 0.4 % (0-2) 12/11/19 05:51 Absolute Neuts (auto) 2.7 10^3/uL (1.7-8.2) 12/11/19 05:51 Absolute Lymphs (auto) 1.5 10^3/uL (0.5-4.7) 12/11/19 05:51 Absolute Monos (auto) 0.4 10^3/uL (0.1-1.4) 12/11/19 05:51 Absolute Eos (auto) 0.1 10^3/uL (0.0-0.6) 12/11/19 05:51 Absolute Basos (auto) 0.0 10^3/uL (0.0-0.2) 12/11/19 05:51 Seg Neutrophils % 56.4 % (42-78) 12/11/19 05:51 Sodium 138.0 mmol/L (137-145) 12/11/19 05:51 Potassium 3.5 mmol/L (3.6-5.0) L 12/11/19 05:51 Chloride 104 mmol/L (98-107) 12/11/19 05:51 Carbon Dioxide 29 mmol/L (22-30) 12/11/19 05:51 Anion Gap 5 (5-19) 12/11/19 05:51 BUN 8 mg/dL (7-20) 12/11/19 05:51 Creatinine 0.43 mg/dL (0.52-1.25) L 12/11/19 05:51 Est GFR ( Amer) > 60 (>60) 12/11/19 05:51 Est GFR (MDRD) Non-Af > 60 (>60) 12/11/19 05:51 Glucose 128 mg/dL (75-110) H 12/11/19 05:51 Calcium 9.3 mg/dL (8.4-10.2) 12/11/19 05:51 Total Bilirubin 0.5 mg/dL (0.2-1.3) 12/11/19 05:51 Direct Bilirubin 0.0 mg/dL (0.0-0.4) 12/11/19 05:51 Neonat Total Bilirubin Not Reportable 12/11/19 05:51 Neonat Direct Bilirubin Not Reportable 12/11/19 05:51 Neonat Indirect Bili Not Reportable 12/11/19 05:51 AST 41 U/L (14-36) H 12/11/19 05:51 ALT 41 U/L (<35) H 12/11/19 05:51 Alkaline Phosphatase 47 U/L (38-126) 12/11/19 05:51 Total Protein 7.0 g/dL (6.3-8.2) 12/11/19 05:51 Albumin 3.9 g/dL (3.5-5.0) 12/11/19 05:51 Lipase 185.9 U/L (23-300) 12/10/19 17:26 Urine Color YELLOW 12/10/19 17:00 Urine Appearance CLEAR 12/10/19 17:00 Urine pH 7.0 (5.0-9.0) 12/10/19 17:00 Ur Specific [place] 1.005 12/10/19 17:00 Urine Protein NEGATIVE mg/dL (NEGATIVE) 12/10/19 17:00 Urine Glucose (UA) NEGATIVE mg/dL (NEGATIVE) 12/10/19 17:00 Urine Ketones NEGATIVE mg/dL (NEGATIVE) 12/10/19 17:00 Urine Blood NEGATIVE (NEGATIVE) 12/10/19 17:00 Urine Nitrite NEGATIVE (NEGATIVE) 12/10/19 17:00 Urine Bilirubin NEGATIVE (NEGATIVE) 12/10/19 17:00 Urine Urobilinogen NEGATIVE mg/dL (<2.0) 12/10/19 17:00 Ur Leukocyte Esterase NEGATIVE (NEGATIVE) 12/10/19 17:00 Urine RBC (Auto) 0 /HPF 12/10/19 17:00 U Hyaline Cast (Auto) 1 /LPF 12/10/19 17:00 Urine Mucus (Auto) RARE /LPF 12/10/19 17:00 Urine Ascorbic Acid 40 (NEGATIVE) H 12/10/19 17:00 SARS-CoV-2 (PCR) NEGATIVE (NEGATIVE) 12/10/19 22:09 Impressions: Abdomen/Pelvis CT 12/10/19 16:47 IMPRESSION: 1. Mildly distended gallbladder with thickening of the gallbladder wall. Correlate for acalculous cholecystitis. 2. Diverticulosis coli. 3. Very small ventral hernia in the pelvis. Contains fat. Abdomen Ultrasound 12/10/19 19:42 IMPRESSION: Possible sludge in the gallbladder with thickened gallbladder wall. No sonographic Hughes's. No biliary dilatation.
[2019-12-12] MEDS: DOCUSATE SODIUM 100 MG CAPSULE PO SCH (09:26)
[2019-12-12 10:34] VITALS: BP 128/66
== END 2019-12-12 11:05 | disposition home or self-care (01) ==
LOC: ER 15:09 → EH 21:42 → INTOOBSV 21:42 → 4S 23:41
PROVIDERS: ATTEND Surgery
DX: K81.1 Chronic cholecystitis (principal); I10 Essential (primary) hypertension; K21.9 Gastro-esophageal reflux disease without esophagitis; K66.0 Peritoneal adhesions (postprocedural) (postinfection); Z79.82 Long term (current) use of aspirin; Z87.891 Personal history of nicotine dependence; G65.2 Sequelae of toxic polyneuropathy; Z03.818 Encounter for observation for suspected exposure to other biological agents ruled out; Z83.79 Family history of other diseases of the digestive system; Z90.12 Acquired absence of left breast and nipple; Z79.899 Other long term (current) drug therapy; Z85.3 Personal history of malignant neoplasm of breast
CPT/HCPCS: 99285; 36415 ×2; 83690; 85025 ×2; 80053 ×2; 81001; 88304 ×2; 76705; 74177; 93005; 93010; 00790; 47562; 44180; G0378 ×2; U0003; J2250; J0690 ×3; J3490 ×2; J1100; A9270 ×3; J3010; J1885 ×2; J2270; J2710; J2370; J0330; J2405; J7121 ×2; J2704; C9803; 790; 87635